=== PATIENT | female | born 1990 | race Caucasian/White ===

== ENCOUNTER 2016-02-26 22:57 | Emergency (ER) | payer OTHER ==
[~2016-02-26] VITALS: Ht 154.9 cm; Wt 80.5 kg
[~2016-02-26 22:57] MED LIST: CIPR500T4 PO
[2016-02-26 23:01] VITALS: Ht 154.9 cm; Wt 80.5 kg
--- NOTE | 2016-02-26 23:38 | ERD ---
ER Documentation Chief Complaint Date/Time DATE: 02/26/16 TIME: 23:35 Chief Complaint SURGICAL DRAIN NEEDS TO BE REMOVED PER SURGEON HPI Patient is a 26-year-old female with no medical problems who presents for drain removal. She had breast augmentation done on Monday and has drains placed in the right and left breast. She had this procedure done in [place]. Her son tugged on the drains today and she was having pain. She was told by the surgeon that she needed to take the drains out herself tomorrow but she called the surgeon richie to say that the drains pulled slightly and the surgeons had to go to the ER to have them removed. The patient has no fevers. ROS All systems reviewed and are negative except as per history of present illness. Medications Home Meds Active Scripts Ciprofloxacin Hcl* (Ciprofloxacin Hcl*) 500 Mg Tablet, 500 MG PO BID for 10 Days , TAB Prov:SIMONE LUZ DO 02/20/15 Allergies Allergies: Coded Allergies: Penicillins (Verified Allergy, Unknown, 02/20/15) methohexital (Verified Allergy, Unknown, cardiac arrest, 02/20/15) PMhx/Soc History of Surgery: No Anesthesia Reaction: No Hx Neurological Disorder: Yes (h/a) Hx Respiratory Disorders: No Hx Cardiac Disorders: No Hx Psychiatric Problems: No Hx Miscellaneous Medical Probl: No Hx Alcohol Use: No Hx Substance Use: Yes (medical [facility]) Hx Tobacco Use: Yes FmHx Family History: diabetes Physical Exam Vitals Vital Signs Date Time Temp Pulse Resp B/P Pulse Ox O2 Delivery O2 Flow Rate FiO2 02/26/16 23:01 98.0 79 20 130/77 99 Physical Exam Const: Mild distress secondary to pain Head: Atraumatic Eyes: Normal Conjunctiva ENT: Normal External Ears, Nose and Mouth. Neck: Full range of motion..~ No meningismus. Resp: Clear to auscultation bilaterally Cardio: Regular rate and rhythm, no murmurs Abd: Soft, non tender, non distended. Normal bowel sounds Skin: Incision to the bilateral breasts are clean, dry, and intact. There are [address] in the right and left breasts respectively, there is no sign of infection. There are sutures holding the drains intact. Back: No midline or flank tenderness Ext: No cyanosis, or edema Neur: Awake and alert Psych: Normal Mood and Affect Procedures/MDM Drain removal #1: I used a suture removal kit and was able to remove the stitch from the right drain without difficulty. I then used a gentle pulling motion was able to remove the right breast drain in totality. Hemostasis was achieved. Drain removal #2: I used a suture removal kit and was able to remove the stitch from the left drain without difficulty. I then used a gentle pulling motion was able to remove the left breast drain in totality. Hemostasis was achieved. Patient is a 26-year-old female presents for drain removal. I removed 2 drains from the breast bilaterally and there are no signs of infection. The patient feels much better. I believe outpatient management is appropriate at this time. She can follow-up with her surgeon as planned. The patient can return for any worsening symptoms. Departure Diagnosis: Primary Impression: Change or removal of drains Condition: Fair Patient Instructions: Care After Breast Implants Referrals: Your surgeon Additional Instructions: SPECIALIST: YOU HAVE A MEDICAL CONDITION WHICH REQUIRES YOU TO SEE A SPECIALIST WITHIN THE NEXT 1-2 DAYS. PLEASE FOLLOW UP WITH YOUR PRIMARY PHYSICIAN FOR REFFERAL.IF YOU DO NOT HAVE A PRIMARY CARE PHYSICIAN AND/OR YOU CAN NOT AFFORD TO SEE A PHYSICIAN THE FOLLOWING RESOURCES HAVE BEEN SUPPLIED TO YOU. IT IS YOUR RESPONSIBILITY TO BE SEEN BY THE SPECIALIST AVERY WOLF MD Feb 26, 2016 23:38
== END 2016-02-26 23:57 | disposition home or self-care (01) ==
LOC: FTE 22:57
DX: Z48.01 Encounter for change or removal of surgical wound dressing (principal); F17.210 Nicotine dependence, cigarettes, uncomplicated
CPT/HCPCS: 99281

== ENCOUNTER 2018-04-26 13:55 | Emergency (ER) | payer OTHER ==
[~2018-04-26] VITALS: Ht 154.9 cm; Wt 87.7 kg
[2018-04-26 14:14] VITALS: Ht 154.9 cm; Wt 87.7 kg
--- NOTE | 2018-04-26 17:10 | ERD ---
ER Documentation Chief Complaint Chief Complaint constipation x 5 days and rectal bleed HPI 28-year-old female with past medical history of anxiety and depression who presents with 5-day complaint of constipation along with rectal bleeding. Patient states she has been unable to move her bowels over this period of time. She usually suffers from bouts of constipation with intermittent although spares episodes of diarrhea. Ultimately was able to move her bowels in the ED wire to evaluation reporting normal bowel movement without any noticeable blood streaking. She denies any history of known hemorrhoids.She tried laxatives and MiraLAX this morning which obviously have had their effect. She otherwise denies any dark stools, abdominal pain, nausea and vomiting, vaginal bleeding or discharge. States she has had some urinary frequency but denies any burning or itching. Is sexually active and reports regular condom use. She otherwise is without complaint and has been relatively healthy. States she follows prominently with her PMD. ROS All systems reviewed and are negative except as per history of present illness. Medications Home Meds Active Scripts Ciprofloxacin Hcl* (Ciprofloxacin Hcl*) 500 Mg Tablet, 500 MG PO BID for 10 Days, TAB Prov:SIMONE LUZ DO 02/20/15 Allergies Allergies: Coded Allergies: methohexital (Verified Allergy, Unknown, cardiac arrest, 04/26/18) PMhx/Soc History of Surgery: No Anesthesia Reaction: No Hx Neurological Disorder: Yes (h/a) Hx Respiratory Disorders: No Hx Cardiac Disorders: No Hx Psychiatric Problems: No Hx Miscellaneous Medical Probl: No Hx Alcohol Use: No Hx Substance Use: Yes (medical [facility]) Hx Tobacco Use: No Smoking Status: Never smoker FmHx Family History: No diabetes, No coronary disease, No other Physical Exam Vitals Vital Signs Date Temp Pulse Resp B/P (MAP) Pulse Ox O2 O2 Flow FiO2 Time Delivery Rate 04/26/18 98.1 79 18 126/78 99 Room Air 18:04 (94) 04/26/18 99.0 92 18 144/94 99 14:14 (111) Physical Exam I have reviewed the triage vital signs. Const: obese, Well nourished, well developed, appears stated age Eyes: PERRL, no conjunctival injection HENT: NCAT, Neck supple without meningismus CV: RRR, Warm, well-perfused extremities RESP: CTAB, Unlabored respiratory effort GI: soft, non-tender, non-distended, no masses MSK: No gross deformities appreciated Skin: Warm, dry. No rashes Neuro: Alert, grossly non focal Psych: Appropriate mood and affect. Results 24 hrs Laboratory Tests Test 04/26/18 16:58 Urine Color YELLOW Urine Clarity CLEAR Urine pH 6.0 Urine Specific [place] 1.015 Urine Ketones NEGATIVE mg/dL Urine Nitrite NEGATIVE mg/dL Urine Bilirubin NEGATIVE mg/dL Urine Urobilinogen NEGATIVE mg/dL Urine Leukocyte Esterase NEGATIVE Cara/ul Urine Microscopic RBC 5 /HPF Urine Microscopic WBC 1 /HPF Urine Squamous Epithelial Cells FEW /HPF Urine Hemoglobin 1+ mg/dL Urine Glucose NEGATIVE mg/dL Urine Total Protein NEGATIVE mg/dl Procedures/MDM This patient presents with rectal bleeding (blood streaking) with history of constipation. Symptoms likely secondary to chronic constipation and/or hemorrhoidal component as well as IBS given alternating diarrhea and constipation. She is able to move bowels in ED without issue no blood noticed in stool. I advised her to follow-up for PMD regarding this issue. I have low suspicion for emergent causes of rectal bleeding given patient age and lack of risk factors. She warrants no additional workup at this time as she is hemodynamically stable and reporting improved symptoms. ED course; UA negative Patient's bleeding symptoms have stabilized while in the department. No evidence of symptomatic anemia, unstable bleed, or surgical abdomen. Extensive discussion with family and patient that occult disease cannot be ruled out. Patient to follow up in the next couple of days for re-examination. Departure Diagnosis: Primary Impression: Constipation Condition: Stable AKHIL SCANLON PA-C Apr 26, 2018 17:10
[2018-04-26 18:04] VITALS: BP 126/78; PULSE 79; RESP 18
== END 2018-04-26 18:07 | disposition home or self-care (01) ==
LOC: FTE 13:55
DX: K59.00 Constipation, unspecified (principal)
CPT/HCPCS: 81001; Z7502; 99283